=== PATIENT | female | born 1955 | race Hispanic/Latino ===

== ENCOUNTER → 2025-01-17 | Outpatient (CLI) | payer OTHER, MEDICAID ==
--- NOTE | 2025-01-18 09:14 | HMCSR ---
APPROVED REPORT EXAM: Two-dimensional and M-mode echocardiogram with Doppler and color Doppler. INDICATION ICD: I10 Essential hypertension 2D Dimensions RVDd2.7 cmLVEF(%)71.0 (>50%)LVED Vol(simp.)37.0 mL IVSd0.7 (0.7-1.1cm)FS(%)40 %LVES Vol(simp.)16.0 mL LVDd4.0 (3.8-5.6cm)LA (2D)3.7 (1.6-4.0cm)LVEF(%, simp.)58 % PWd0.8 (0.7-1.1cm)Ao Root(2D)2.8 (2.0-3.7cm)LA ESV INDEX (BP)19.78 mL/m2 IVSs1.0 cmLVOT diam2.0 (1.8-2.4cm) LVDs2.4 (2.5-4.0cm)IVC diam1.3 cm PWs1.0 cm M-Mode Dimensions EPSS0.1 cm LA (MM)3.9 (1.6-4.0cm) Ao Root(MM)3.1 (2.0-3.7cm) Aortic Valve AoV Vmax1.6 m/Saurabh Peak GR10.5 mmHgLVOT Vmax1.0 m/s AoV VTI0.3 mAo Mean GR5.7 mmHgLVOT VTI0.21 m MAYNOR (VMAX)1.87 cm2AVA (VTI) 2.0 cm2 Mitral Valve MV E Mtzd876.3 cm/sDECEL Sara467 ms MV A Mcga027.3 cm/sP 1/2 T64 ms E/A ratio1.0MVA (PHT)3.4 cm2 TDI E/E' Umnzmc04.8E/E' Twxzxyq36.7 Medial E' Peak V6.14 cm/sLateral E' Peak V6.85 cm/s Pulmonary Valve PV Vmax1.2 m/sPV VTI0.22 mPV Mean GR2.7 mmHg PV Peak GR5.5 mmHg Tricuspid Valve TR Vmax2.3 m/sRVSP20.4 mmHg TR Peak GR20.4 mmHg Left Ventricle The left ventricle is normal size. There is normal left ventricular wall thickness. LVEF is 60-65%. T he left ventricular diastolic function is normal. Right Ventricle The right ventricle is normal size. The right ventricular systolic function is normal. Atria The left atrium size is normal. The right atrium size is normal. Aortic Valve The aortic valve is normal in structure. Trace of aortic regurgitation is present. There is no aortic valvular stenosis. Mitral Valve There is mitral annular calcification. The mitral valve is mildly thickened and open well. Mitral reg urgitation is mild. There is no mitral valve stenosis. Tricuspid Valve The tricuspid valve is normal in structure. There is trace of tricuspid valve regurgitation noted. Pulmonic Valve The pulmonary valve is normal in structure. There is no pulmonic valvular regurgitation. Great Vessels The aortic root is normal in size. The IVC is normal in size and collapses >50% with inspiration. Pericardium There is no pericardial effusion. Other Information Quality : Adequate Conclusion The left ventricle is normal size. LVEF is 60-65%. Mitral regurgitation is mild. Trace of aortic regurgitation is present.
== END | disposition home or self-care (01) ==
LOC: RAH 10:36
PROVIDERS: ATTEND Internal Medicine Cardiovascular Disease
DX: I34.0 Nonrheumatic mitral (valve) insufficiency (principal); I34.81 Nonrheumatic mitral (valve) annulus calcification; I10 Essential (primary) hypertension
CPT/HCPCS: 93306